=== PATIENT | female | born 1965 | race Caucasian/White ===

== ENCOUNTER 2021-03-07 12:34 | Outpatient (CLI) | payer BC, SELFPAY ==
--- NOTE | ~2021-03-07 | XR_ITS ---
XR chest 2V DATE: 03/07/2021 12:50 INDICATION: Shortness of breath, general chest pain for 3 days TECHNIQUE: PA and lateral views COMPARISON: 02/05/2016 PA and lateral chest FINDINGS: Normal heart size. No hilar or mediastinal enlargement. No pulmonary infiltrate or consolid ation, pleural effusion or pulmonary vascular congestion or pneumothorax is detected. IMPRESSION: No active cardiopulmonary disease Reviewed, dictated and finalized at location A. ICE ATTENDANT
== END 2021-03-07 12:35 | disposition home or self-care (01) ==
PROVIDERS: PCP Family Medicine; Visit Provider Physician Assistant
DX: R06.02 Shortness of breath (principal); R07.89 Other chest pain
CPT/HCPCS: 71046

== ENCOUNTER 2021-04-10 09:01 | Outpatient (CLI) | payer BC, SELFPAY ==
--- NOTE | ~2021-04-10 | CT_ITS ---
EXAMINATION: CT lung screening DATE: 04/10/2021 09:28 INDICATION: History of nicotine dependence TECHNIQUE: Computed tomography (CT) of the chest was performed without intravenous contrast. The dose -length product was 90.79 mGy-cm. Automated exposure control and iterative reconstruction technique w ere employed. COMPARISON: Chest x-ray dated 03/07/2021 FINDINGS: Heart size is normal. No significant pleural or pericardial effusion. There are small nodul es measuring up to 5 mm in the far lateral aspect of the right breast, coronal image 36. No thoracic lymphadenopathy. Heart size normal. No significant pleural or pericardial effusion. Visualized aspect s of the upper abdomen are unremarkable. There is a 2 mm nodule in the left upper lobe, image 35. The re are additional small nodules in the lung apices measuring 2 mm or less. There is mild emphysema. N o endobronchial lesions. No pneumothorax. Mildly elevated left diaphragm. No focal airspace disease. Mild thoracic spondylosis. IMPRESSION: 1. Lung-RADS category 2: Benign appearance or behavior. Continue annual screening with noncontrast lo w-dose chest CT in 12 months. 2: Small soft tissue nodules far lateral aspect of the right breast inferiorly measuring up to 5 mm. Correlation with diagnostic mammogram and ultrasound recommended. Reviewed, dictated and finalized at location A. N'S LACROSSE COACH IMPRESSION: 1. Lung-RADS category 2: Benign appearance or behavior. Continue annual screeni ng with noncontrast low-dose chest CT in 12 months. 2: Small soft tissue nodules far lateral aspect of the right breast inferiorly measuring up to 5 mm. Correlation with diagnostic mammogram and ultrasound phoebe mmended.
== END 2021-04-10 09:02 | disposition home or self-care (01) ==
LOC: ANHIMG 09:06
PROVIDERS: PCP Family Medicine; Visit Provider Nurse Practitioner Gerontology
DX: Z12.2 Encounter for screening for malignant neoplasm of respiratory organs (principal); F17.210 Nicotine dependence, cigarettes, uncomplicated
CPT/HCPCS: 71271

== ENCOUNTER 2021-04-16 08:00 | Outpatient (CLI) | payer BC, SELFPAY ==
--- NOTE | 2021-04-16 08:06 | ECHO_ITS ---
Patient Info Name: Myrna Buckley Age: 56 years : 1965 Gender: Female Ht: 66 in Wt: 170 lbs BSA: 1.91 m2 HR: 84 bpm BP: 141 / 94 mmHg Technical Quality: Fair Exam Date: 04/16/2021 8:47 AM Exam Location: [facility] Patient Status: Outpatient Admit Date: 04/16/2021 Staff Ordering Physician: [place], Trinity Hazel PA-C Guide Domestic Tour: Aide Smith RDCS Attending Provider: [place], Trinity Hazel PA-C Referring Physician: [place] HARRIS; Exam Type: CA echo doppler color flow Study Info Indications R94.31 - Abnormal electrocardiogram ECG EKG Complete two-dimensional, color flow and Doppler transthoracic echocardiogram is performed. Summary 1. Complete two-dimensional, color flow and Doppler transthoracic echocardiogram is performed. 2. Left ventricular chamber dimension is normal. 3. Left ventricular systolic function is normal, estimated at 65-70%. 4. There is mildly increased left ventricular wall thickness. 5. The left ventricular diastolic function is grade I diastolic dysfunction. 6. E/e' 8 is minimally elevated. 7. Global longitudinal strain is normal at -17.3%. Left Ventricle E/e' 8 is minimally elevated. Global longitudinal strain is normal at -17.3%. Left ventricular chamber dimension is normal. Left ventricular systolic function is normal, estimated at 65-70%. There is mildly increased left ventricular wall thickness. The left ventricular diastolic function is grade I diastolic dysfunction. Right Ventricle Right ventricular chamber dimension is normal. Right ventricular systolic function is normal. Left Atria Left atrial chamber dimension is normal. Right Atria Right atrial chamber dimension is normal. Aortic Valve The aortic valve is trileaflet. There is no aortic valve stenosis. There is no aortic valve regurgitation. Pulmonic Valve There is no pulmonic regurgitation. Mitral Valve There is no mitral valve stenosis. There is no mitral valve regurgitation. Tricuspid Valve There is no tricuspid valve regurgitation. Pericardium/Pleural There is no pericardial effusion. Inferior Vena Cava Normal inferior vena cava with >50% collapse upon inspiration consistent with normal right atrial pressure, 5 mmHg. Aorta The aortic root size at the sinus of Valsalva is normal. Left Ventricular Outflow Tract Name Value Normal LVOT 2D LVOT Diameter 1.9 cm LVOT Doppler LVOT Peak Gradient 4 mmHg LVOT Mean Gradient 2 mmHg LVOT VTI 19 cm LVOT VTI/AV VTI Ratio 1.0 LVOT Stroke Volume 56 ml LVOT CO 4.7 l/min LVOT CI 2.5 l/min/m2 Pulmonic Valve Name Value Normal RVOT Doppler RVOT Peak Gradien
--- NOTE | 2021-04-16 15:10 | WPDPFTINT ---
PFT Procedure Performed PFT Procedure Performed Plethysmography (Lung Vol) Diffusing Cap (DLCO) Flow Vol Loop Spirometry w/o Bronchodil PFT Interpretation Lung volumes were measured with the body plethysmography method. Lung volumes are unremarkable. Spirometry showed normal expiratory flow rates and a normal FEV1 to FVC ratio of 75%. Lung diffusion capacity is mildly reduced at 60% predicted. The flow volume loop is unremarkable. No post bronchodilator study was carried out. Impression: Spirometry, lung volumes within normal range. Mild reduction in lung diffusion capacity.
== END 2021-04-16 08:01 | disposition home or self-care (01) ==
PROVIDERS: PCP Family Medicine; Visit Provider Physician Assistant
DX: R94.31 Abnormal electrocardiogram [ECG] [EKG] (principal); I10 Essential (primary) hypertension; J44.9 Chronic obstructive pulmonary disease, unspecified; F17.200 Nicotine dependence, unspecified, uncomplicated
CPT/HCPCS: 93306; 94375; 94726; 94729

== ENCOUNTER 2021-04-30 12:37 | Outpatient (CLI) | payer BC, SELFPAY ==
--- NOTE | ~2021-04-30 | MMUS_ITS ---
EXAMINATION: MM diagnostic annabelle BI w [place], US breast BI complete HISTORY: Follow-up breast nodules seen on recent CT examination. TECHNIQUE: Additional 3-D tomosynthesis images of the breasts were performed and synthetic 2-D images were generated. CAD analysis was submitted and interpreted. High resolution bilateral complete breas t ultrasound was performed. COMPARISON: Comparison to multiple prior studies sequentially, with oldest reviewed study dated 04/2009. BREAST PARENCHYMAL COMPOSITION: The breasts are heterogenously dense, which may obscure small masses. FINDINGS: MAMMOGRAPHIC FINDINGS: There are multiple ill-defined nodules scattered throughout both breasts which are partially obscured by overlying dense fibroglandular tissue. There are no suspicious calcifications in either breast. ULTRASOUND: Complete bilateral US of all 4 quadrants of the breasts and retroareolar region was reviewed. Right breast ultrasound: At 12:00, 1 cm from the nipple there is a 4 mm cyst. At 12:00, 1 cm from the nipple there is a 5 mm cyst. At 10:00, 7 cm from the nipple there is an oval hypoechoic mass measuri ng 7 x 4 x 4 mm without significant posterior features or internal vascularity. There is parallel tracee entation. Left breast ultrasound: At 1:00, 5 cm from the nipple there is an oval hypoechoic mass measuring 5 x 4 x 4 mm with internal septation and no internal vascularity or posterior features. At 6:00, 2 cm fro m the nipple there is an irregular hypoechoic mass measuring 6 x 6 x 5 mm with internal vascularity. No significant posterior features. Some of the margins are irregular. At 10:00, 3 cm from the nipple there is an oval hypoechoic mass measuring 8 x 6 x 4 mm, possibly a cluster of cysts. IMPRESSION: 1. Suspicious left breast mass at 6:00, 2 cm from the nipple measuring up to 6 mm. Ultrasound-guided left breast biopsy recommended. 2. Additional masses in both breasts by ultrasound are likely benign. Six-month follow-up diagnostic bilateral mammogram and ultrasound recommended for these masses. BI-RADS category 4, suspicious findings. Reviewed, dictated and finalized at location A. EL TURNER IMPRESSION: 1. Suspicious left breast mass at 6:00, 2 cm from the nipple measuring up to 6 mm. Ultrasound-guided left breast biopsy recommended. 2. Additional masses in both breasts by ultrasound are likely benign. Six-month follow-up diagnostic bilateral mammogram and ultrasound recommended for these masses. BI-RADS category 4, suspicious findings.
== END 2021-04-30 12:38 | disposition home or self-care (01) ==
LOC: ANHIMG 12:39
PROVIDERS: PCP Family Medicine; Visit Provider Nurse Practitioner Gerontology
DX: N63.0 Unspecified lump in unspecified breast (principal); R92.8 Other abnormal and inconclusive findings on diagnostic imaging of breast
CPT/HCPCS: 76641; 77062; 77066; G0279

== ENCOUNTER 2021-05-04 09:53 | Outpatient (CLI) | payer BC, SELFPAY ==
--- NOTE | ~2021-05-04 | MMUS_ITS ---
MM post biopsy invasive LT, US breast biopsy LT w image EXAMINATION: US GUIDED NEEDLE BIOPSY WITH VAC UUM ASSISTANCE DATE: 05/04/2021 12:29 Z OS MAINFRAME SYSTEMS PROGRAMMER INDICATION: Left breast mass seen on recent examination. Ultrasound-guided core biopsy is requested to evaluate for malignancy. TECHNIQUE AND FINDINGS: The risks and potential benefits of the procedure were discussed with the patient, and written inform ed consent was obtained. After sterile preparation of the left breast, 1% lidocaine was utilized for local anesthesia. 1% lidocaine with epinephrine was used for deep anesthesia. A 10G vacuum-assisted biopsy gun needle was advanced through to the outer edge of the region of inter est from a inferior approach utilizing sonographic guidance. A total of 6 tissue core samples were o btained through the lesion. An Inrad tissue marker clip was then placed at the biopsy site. Hemostas is was achieved. The patient tolerated procedure well and there was no evidence of immediate complication. The patien t was given verbal instructions partly is from the department. Left breast mammograms to document ti ssue marker clip placement. The tissue samples were submitted to surgical pathology for histologic an alysis. IMPRESSION: 1. Successful ultrasound-guided vacuum-assisted biopsy of left/right breast mass with tissue marker placement. Please refer to pathology report for histologic analysis. Reviewed, dictated and finalized at location A. Z OS MAINFRAME SYSTEMS PROGRAMMER IMPRESSION: 1. Successful ultrasound-guided vacuum-assisted biopsy of left/right breast ma ss with tissue marker placement. Please refer to pathology report for histologi c analysis.
== END 2021-05-04 09:54 | disposition home or self-care (01) ==
LOC: ANHIMG 09:58
PROVIDERS: PCP Family Medicine; Visit Provider Nurse Practitioner Gerontology
DX: N63.23 Unspecified lump in the left breast, lower outer quadrant (principal); N64.89 Other specified disorders of breast
CPT/HCPCS: 19083; 88305; A4648

== ENCOUNTER 2021-10-17 14:10 | Outpatient (CLI) | payer BC, SELFPAY ==
--- NOTE | ~2021-10-17 | XR_ITS ---
EXAMINATION: XR chest 2V 10/17/2021 14:30 INDICATION: Cough with recent fever PROCEDURE: 2 view chest COMPARISON: 03/07/2021 FINDINGS: The lungs are clear. The cardiomediastinal silhouette is within normal limits. There are no pleural effusions. There is no pneumothorax suspected. IMPRESSION: 1: NO ACUTE CARDIOPULMONARY DISEASE. Reviewed, dictated and finalized at location A.
== END 2021-10-17 14:11 | disposition home or self-care (01) ==
PROVIDERS: PCP Family Medicine; Visit Provider Nurse Practitioner Gerontology
DX: R05.9 Cough, unspecified (principal)
CPT/HCPCS: 71046

== ENCOUNTER 2021-11-29 14:09 | Outpatient (CLI) | payer BC, SELFPAY ==
--- NOTE | ~2021-11-29 | MMUS_ITS ---
EXAMINATION: MM diagnostic annabelle BI w [place], US breast BI limited HISTORY: Six-month follow-up for probably benign bilateral breast masses TECHNIQUE: Craniocaudal, mediolateral, and mediolateral oblique 3-D tomosynthesis images of the yvette ts were performed and synthetic 2-D images were generated. CAD analysis was submitted and interpreted . High resolution limited bilateral breast ultrasound was performed. COMPARISON: 04/30/2021, 11/13/2009, 11/06/2009, 10/19/2009 BREAST PARENCHYMAL COMPOSITION: The breasts are heterogeneously dense, which may obscure small masses . FINDINGS: MAMMOGRAPHIC FINDINGS: There are multiple mammographically stable, obscured, low density masses in both breasts. None demons trate suspicious interval change. There are changes of interval left breast biopsy. ULTRASOUND: Again seen are multiple sonographically similar cystic and solid masses in both breasts. An 8 mm comp isidro cystic and solid mass at the 6:00 location 2 cm from the nipple is not significantly changed in s ize since the prior examination. IMPRESSION: 1. Probably benign left breast mass. 2. Recommend 6 month follow-up left diagnostic mammogram and ultrasound. BI-RADS category 3, probably benign findings. Reviewed, dictated and finalized at location A. IMPRESSION: 1. Probably benign left breast mass. 2. Recommend 6 month follow-up left diagnostic mammogram and ultrasound. BI-RADS category 3, probably benign findings.
== END 2021-11-29 14:10 | disposition home or self-care (01) ==
PROVIDERS: PCP Family Medicine; Visit Provider Nurse Practitioner Gerontology
DX: N63.0 Unspecified lump in unspecified breast (principal)
CPT/HCPCS: 76642; 77062; 77066; G0279

== ENCOUNTER 2022-06-14 12:15 | Outpatient (CLI) | payer OTHER, SELFPAY ==
--- NOTE | ~2022-06-14 | MMUS_ITS ---
EXAMINATION: MM diagnostic annabelle LT w [place], US breast LT complete HISTORY: Probably benign left breast mass reported on 11/29/2021 diagnostic bilateral mammogram examin ation and Limited bilateral breast ultrasound examination; six-month follow-up TECHNIQUE: Additional 3-D tomosynthesis images of the left breast were performed and synthetic 2-D im ages were generated. CAD analysis was submitted and interpreted. High resolution complete breast ultr asound examination including all 4 quadrants and subareolar area was performed. COMPARISON: 11/29/2021 bilateral diagnostic mammogram and Limited bilateral breast ultrasound BREAST PARENCHYMAL COMPOSITION: The breasts are heterogeneously dense, which may obscure small masses . FINDINGS: MAMMOGRAPHIC FINDINGS: A biopsy marker is again noted; history of prior benign left breast biopsy. 5.5 mm circumscribed low-density benign-appearing mammographic opacity is noted in the upper outer le ft breast. No suspicious mass or architectural distortion is evident. Occasional benign microcalcifications. ULTRASOUND: 1:00 5 cm from nipple: 5.5 x 6.8 mm simple cyst 2:00 6 cm from nipple: 3.5 x 6.6 mm simple cyst 6:00 2 cm from nipple: Multi septated 6.3 x 7.7 mm cyst 8:00 5 cm from nipple: 2.4 x 3.8 mm septated cyst 9:00 3 cm from nipple: 3 x 6.5 mm septated cyst 10:00 3 cm from nipple: 2.8 x 4.1 mm cyst No suspicious mass or shadowing is evident. IMPRESSION: 1. Benign findings 2. Routine annual mammographic screening is recommended BI-RADS Category 2: Benign finding(s). Reviewed, dictated and finalized at location A. RNOR ASSEMBLER HYDRAULIC IMPRESSION: 1. Benign findings 2. Routine annual mammographic screening is recommended BI-RADS Category 2: Benign finding(s).
== END 2022-06-14 12:16 | disposition home or self-care (01) ==
LOC: ANHIMG 12:18
PROVIDERS: PCP Family Medicine; Visit Provider Nurse Practitioner Gerontology
DX: N63.0 Unspecified lump in unspecified breast (principal)
CPT/HCPCS: 76641; 77061; 77065; G0279